=== PATIENT | female | born 2000 | race Hispanic/Latino ===

== ENCOUNTER 2023-09-27 11:32 | Emergency (ER) | payer SELFPAY ==
[~2023-09-27] VITALS: Ht 162.6 cm; Wt 77.2 kg
[2023-09-27 11:55] LABS: BILIRUBIN, URINE NEGATIVE (negative); BLOOD/HGB, URINE LARGE (Negative); KETONE, URINE SMALL (Negative); LEUK ESTERASE, URINE MODERATE (negative); NITRITE, URINE POSITIVE (negative)
[2023-09-27 12:01] LABS: CRYSTALS, URINE NONE SEEN (0-1+); RED BLOOD CELLS, URINE >50 /hpf (0-5); WHITE BLOOD CELLS, URINE >50 /HPF (0-5)
[2023-09-27 12:02] LABS: BACTERIA, URINE 1+ /hpf (negative); CASTS, URINE NONE SEEN \\lpf; COLLECTION TYPE, URINE CLEAN CATCH; REFLEX CULTURE, URINE Yes (No)
[2023-09-27] MEDS ORDERED: ACETAMINOPHEN 500 MG TAB PO ONE (12:15)
[2023-09-27] MEDS ORDERED: IBUPROFEN 600 MG TAB PO ONE (12:15)
[2023-09-27] MEDS ORDERED: CEPHALEXIN500 MG PO (12:29)
[2023-09-27 12:31] VITALS: BP 109/68
== END 2023-09-27 12:36 | disposition home or self-care (01) ==
LOC: ED 11:32
PROVIDERS: Emergency Medicine
DX: N30.91 Cystitis, unspecified with hematuria (principal)
CPT/HCPCS: 81001; 99283; A9270

== ENCOUNTER 2025-01-22 08:25 | Emergency (ER) | payer OTHER ==
[~2025-01-22] VITALS: Ht 162.6 cm; Wt 81.3 kg
[~2025-01-22 08:25] MED LIST: CEPHALEXIN500 MG PO
[2025-01-22] MEDS ORDERED: AMOX TR-K CLV1 EAC1 PO (08:44)
[2025-01-22] MEDS ORDERED: ONDANSETRON 4 MG TAB ODT SL ONE (08:45)
[2025-01-22] MEDS ORDERED: OXYCODONE/APAP 5/325 TAB PO ONE (08:45)
[2025-01-22] MEDS ORDERED: PERCOCET 5-3251 EACH PO (08:52)
[2025-01-22] MEDS ORDERED: CIPRO HC OTIC S10 ML AU (08:52)
[2025-01-22] MEDS ORDERED: ONDANSETRON ODT8 MG PO (08:52)
[2025-01-22] MEDS ORDERED: AMOXICILLIN/CLAVULANATE K 875 MG TAB PO ONE (09:30)
[2025-01-22 09:45] VITALS: BP 122/73
== END 2025-01-22 09:46 | disposition home or self-care (01) ==
LOC: ED 08:25
DX: H66.92 Otitis media, unspecified, left ear (principal); H72.92 Unspecified perforation of tympanic membrane, left ear; H60.91 Unspecified otitis externa, right ear
CPT/HCPCS: 99283; A9270

== ENCOUNTER 2025-01-23 06:29 | Emergency (ER) | payer OTHER ==
[~2025-01-23] VITALS: Ht 162.6 cm; Wt 81.2 kg
--- OUTSIDE RECORDS SUMMARY | ~2025-01-23 | XMS | Continuity of Care Document ---
Demographics + + + | Address | [address] | | | [place] [address] | + + + | Preferred Language | Unknown | + + + | Marital Status | Never | + + + | Worship Affiliation | Unknown | + + + | Race | Unknown | + + + | Ethnic Group | or | + + + Author + + + | Author | [facility] | + + + | Organization | [facility] | + + + | Address | [address] | | | [place] [address] | + + + | Phone | | + + + Care Team Providers + + + + | Care [employer] Export Agent Name | Role | Phone | + + + + Unavailable | Unavailable | + + + + Unavailable | Unavailable | + + + + Allergies No information. Encounters No information. Functional Status No information. Immunizations No information. Medications + + + + | date | description | facility | + + + + | 2025-01-22 00:00 | OXYCODONE | [facility] | | | HCL/ACETAMINOPHEN | [facility] | + + + + | 2025-01-22 00:00 | | [facility] [place] | | | CIPROFLOXACIN/HYDROCORTISON | [facility] | | | E | | + + + + | 2025-01-22 00:00 | ONDANSETRON | [facility] | | | | [facility] | + + + + | (no date) | AMOXICILLIN/POTASSIUM CLAV | [facility] [place] | | | | [facility] | + + + + Problems + + + + | date | description | facility | + + + + | 2025-01-22 00:00 | Otitis externa of right | [facility] [place] | | | ear | [facility] | + + + + | 2025-01-22 00:00 | Otitis media of left ear | [facility] [place] | | | with spontaneous rupture of | [facility] | | | tympanic membrane | | + + + + | 2025-01-22 00:00 | Nausea and vomiting | [facility] [place] | | | | [facility] | + + + + Procedures No information. Results/Labs No information. Social History + + + + | date | description | facility | + + + + | (no date) | Unknown if ever smoked | [facility] | | | | [facility] | + + + + Vital Signs + + + +---------+ | date | measurement | value | units | + + + +---------+ | 2025-01-22 00:00 | BMI | 30.8 | kg/m2 | + + + +---------+ | 2025-01-22 00:00 | BP_diastolic | 73 | mmHg | + + + +---------+ | 2025-01-22 00:00 | BP_systolic | 122 | mmHg | + + + +---------+ | 2025-01-22 00:00 | heart_rate | 96 | /min | + + + +---------+ | 2025-01-22 00:00 | height_metric | 162.56 | cm | + + + +---------+ | 2025-01-22 00:00 | height_standard | 64 | in | + + + +---------+ | 2025-01-22 00:00 | o2_saturation | 100 | % | + + + +---------+ | 2025-01-22 00:00 | respiration_rate | 18 | /min | + + + +---------+ | 2025-01-22 00:00 | | 98.6 | F | | | temperature_standar | | | | | d | | | + + + +---------+ | 2025-01-22 00:00 | weight_metric | 81.301 | kg | + + + +---------+ | 2025-01-22 00:00 | weight_standard | 179.237 | lb | + + + +---------+"
[~2025-01-23 06:29] MED LIST changes: +AMOX TR-K CLV1 EAC1 PO; +CIPRO HC OTIC S10 ML AU; +ONDANSETRON ODT8 MG PO; +PERCOCET 5-3251 EACH PO
--- OUTSIDE RECORDS SUMMARY | 2025-01-23 06:36 | XMS ---
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 Rommel has no Care Guidelines for this patient. Lizbeth VISIT COUNT (12 MO.) 2 [facility] TOTAL 2 NOTE: Visits indicate total known visits. ED/C VISIT TRACKING (12 MO.) [facility] COMPLAINT: - EAR PAIN 01/22/2025 08:25 [facility] TYPE: Emergency COMPLAINT: - EAR PAIN INPATIENT VISIT TRACKING (12 MO.) No inpatient visits to display in this time frame [id number]
[2025-01-23] MEDS ORDERED: MORPHINE SULFATE 10 MG/ML VIAL IM ONE (07:00)
[2025-01-23] MEDS ORDERED: KETOROLAC TROMETHAMINE 60 MG/2 ML VIAL IM ONE (07:00)
[2025-01-23] MEDS ORDERED: OXYCODONE/ACETAMINOPHEN 1 TAB HOME.PACK PO ONE (07:00)
[2025-01-23] MEDS ORDERED: methylPREDNISolone 4 MG HOME.PACK PO ONE (07:00)
[2025-01-23 07:17] VITALS: BP 141/89
== END 2025-01-23 07:20 | disposition home or self-care (01) ==
LOC: ED 06:29
DX: H60.93 Unspecified otitis externa, bilateral (principal); Z79.899 Other long term (current) drug therapy
CPT/HCPCS: 96372; 99282; J1885; J2270